=== PATIENT | male | born 2000 | race Hispanic/Latino ===

== ENCOUNTER 2024-08-12 14:54 | Emergency (ER) | payer SELFPAY ==
[2024-08-12 14:58] VITALS: BP 149/75; PULSE 86; RESP 17; TEMP 36.3; O2SAT 98
--- NOTE | 2024-08-12 16:23 | ED_ITS ---
HPI - Wound/Laceration General Chief Complaint: Wound/Laceration Stated Complaint: L foot big toe wound and infection Time Seen by Provider: 08/12/24 15:05 History of Present Illness HPI narrative: Patient is a 24-year-old non-Afghan speaking, male who presents to the ER with complaints of left great toe pain. He reports the toe has an him for approximately 4 days. Patient denies injury to the area. He reports he has had this problem on his right great toe in the past. Patient denies any other pertinent medical history. He denies any fevers, leg pain, or signs/symptoms of infection. Related Data Allergies Allergy/AdvReac Type Severity Reaction Status Date / Time No Known Allergies Allergy Verified 08/12/24 14:55 Review of Systems Review of Systems: All systems reviewed & are unremarkable except as noted in HPI and below Exam Narrative: GENERAL: Well appearing, well-nourished, non-toxic, in no acute distress. HEAD: Normocephalic, atraumatic. NECK: Supple. No adenopathy, no masses. RESPIRATORY: Airway patent, respirations nonlabored. Clear to auscultation bilaterally, no rales, rhonchi, wheezing. CARDIOVASCULAR: Regular rate and rhythm without murmurs, rubs, or gallops. Peripheral pulses 2+ and equal bilaterally. ABDOMINAL: Soft, nontender, nondistended, no hepatosplenomegaly. Normoactive BS. MUSCULOSKELETAL: Moves all extremities. Strength/ROM intact without gross deformities. SKIN: Warm, dry, normal color. No rashes. L great toe pain draining minimal amounts of drainage, notable dried blood along toenail line, mild redness around base and up inner side of L great toenail. NEURO: A&O X3. Speech clear. Cranial nerves II-XII grossly intact. Steady gait. No ataxic movements. PSYCHIATRIC: Appropriate mood and affect. Normal interaction. Course Vital Signs Vital signs: Vital Signs Temperature 36.3 C L 08/12/24 14:58 Pulse Rate 86 08/12/24 14:58 Respiratory Rate 17 08/12/24 14:58 Blood Pressure 149/75 H 08/12/24 14:58 Pulse Oximetry 98 08/12/24 14:58 Oxygen Delivery Room Air 08/12/24 14:58 Temperature 36.3 C L 08/12/24 14:58 Pulse Rate 86 08/12/24 14:58 Respiratory Rate 17 08/12/24 14:58 Blood Pressure 149/75 H 08/12/24 14:58 Pulse Oximetry 98 08/12/24 14:58 Oxygen Delivery Room Air 08/12/24 14:58 MDM - Wound/Laceration MDM Narrative Medical decision making narrative: Patient is a 24-year-old non-Afghan speaking, male who presents to the ER with complaints of left great toe pain. He reports the toe has an him for approximately 4 days. Patient denies injury to the area. He reports he has had this problem on his right great toe in the past. Patient denies any other pertinent medical history. He denies any fevers, leg pain, or signs/symptoms of infection. Labs Ordered: None necessary Imaging Ordered: None necessary Diagnosis: Infected, ingrown toenail Disposition/Plan: Patient given a dose of pain medication while in the ER. Left great toenail looks red and inflamed. Minimal amounts of drainage from inner side of toenail, but no additional palpable areas to drain. Patient will need to see a oral and maxillofacial pathologist outpatient to have ingrown toenail removed. Will treat patient with oral antibiotics and refer him to Podiatry. Patient soak his foot 4 times a day in warm soapy water. He can also put antibiotic ointment on the site afterwards. Patient verbalizes understanding and is in agreement with plan. Differential Diagnosis Differential diagnosis: Likely laceration, abrasion and other (paronychia, ingrown toenail) Discharge Plan Discharge Clinical Impression: Ingrown left big toenail Patient Disposition: Home, Self-Care Condition: Stable Instructions: Antibiotic Form, Ingrown Nail (ED) Additional Instructions: Please soak your foot and soapy warm water 3 to 4 times a day for 20 minutes each. Apply an [id number] antibiotic ointment afterwards. Take your whole dose of prescribed antibiotic. Follow up with the oral and maxillofacial pathologist as soon as possible. Prescriptions: New amoxicillin 500 mg capsule 500 mg PO Q12H Qty: 20 0RF Triple Antibiotic 3.5mg-400 unit- 5,000 unit/gram ointment 1 applic topical TID Qty: 9.35 0RF ibuprofen 600 mg tablet 600 mg PO TID PRN (Reason: fever or pain) Qty: 14 0RF Follow-up/Referrals: Luis Rose Jr., YAMEL [Physician] - PHYSICIAN,[employer] [Primary Care Provider] - Time of Disposition: 18:17
[2024-08-12] MEDS: HYDROcodone/acetaminophen (*CRX) 5-325 MG TABLET 1 TAB PO (16:57)
[2024-08-12] MEDS: AMOXICILLIN 500 MG CAPSULE PO (18:11)
== END 2024-08-12 18:32 | disposition home or self-care (01) ==
PROVIDERS: Emergency Provider Registered Nurse
DX: L60.0 Ingrowing nail (principal)
CPT/HCPCS: 99283; A9270